=== PATIENT | female | born 1935 | race Caucasian/White ===

== ENCOUNTER 2019-01-31 14:22 | Inpatient (IN) | payer OTHER, MEDICARE ==
[~2019-01-31] VITALS: Ht 157.5 cm; Wt 54.4 kg
--- NOTE | ~2019-01-31 | HC ---
[facility] [place] [address] CONSULTATION Name: ANDRÉS ARROYO Room #: 451-[facility] IN M.R.#: [id number] Admission: 01/31/19 ������������������ Attend Phys: Albina Ratliff Discharge: 02/03/19 ������������������ Date of : 33 Report #: [id number] THIS REPORT FOR: //name// CC: Albina Stoddard HISTORY OF PRESENT ILLNESS: This patient is seen in consultation at the request of Dr. Ratliff. 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 Her daughter called last week stating that she had seen Dr. Cano and had abnormal labs and requested an appointment to again be seen, which was scheduled for this week. She was originally treated with 6 cycles of ABVD chemotherapy, which was completed in 2009, in complete remission. I saw her last in 01/2015 and she subsequently has been followed by her primary physician. Her daughter states that her laboratory studies were normal in October and with recent complaints of weakness and confusion, studies were repeated, which were abnormal. She also had a CAT scan performed as an outpatient, which showed hilar adenopathy. PAST MEDICAL HISTORY: Significant also for previous total knee replacement in 2006. She has elevated cholesterol, with medical management. MEDICATIONS: As listed in the MFR. ALLERGIES: None known. SOCIAL HISTORY: She is a nondrinker, nonsmoker. FAMILY HISTORY: Noncontributory. REVIEW OF SYSTEMS: Negative for any sweats, chills, fevers or unintended weight loss. She has had recent complaints of sore throat and was seen by an ENT. She denies any hemoptysis. She is unaware that she was jaundiced. PHYSICAL EXAMINATION: GENERAL: Her physical examination shows her to be alert. HEENT: Normocephalic, except for jaundice with icteric sclerae. Her mouth is clear. NECK: Supple. CHEST: Clear. CARDIOVASCULAR: Normal S1, S2. ABDOMEN: Shows no palpable masses. NEUROLOGIC: No focal localizing signs. PSYCHIATRIC: Not agitated or confused. [facility] [address] [place] [address] CONSULTATION Name: ANDRÉS ARROYO LEELA Room #: 451-P [facility] IN M.R.#: [id number] Admission: 01/31/19 ������������������ Attend Phys: Albina Ratliff Discharge: 02/03/19 ������������������ Date of : 33 Report #: [id number] LYMPHATICS: Reveal a large 3 cm left axillary lymph node. LABORATORY DATA: Laboratory studies in addition to jaundice show pancytopenia with a hemoglobin of 8.7, platelet count of 40,000 and white count of 1300. Her lactic acid was elevated at 2.9. The outside CT scan report again shows hilar and mediastinal adenopathy. 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 PLAN: I recommended that she undergo biopsy of left axillary lymph node and bone marrow for tissue diagnosis of what I suspect will be a malignant lymphoma. It would be unusual for her to have recurrent Hodgkin's disease after 9 years, with a negative PET scan and labs at 5 years when she was last seen. Both she and her daughter state that they are willing to consider and undergo further therapy and to that end, we discussed possible transfer to [facility] to expedite her workup and treatment since chemotherapy is not relatively available here at [facility] and she is pancytopenic. Thanks for allowing me to see her in consultation and allowing me to participate in her care. ��������������������������������������������� ���������������������������������������� By: ��������������������������������������������� 1935 [address] Anais Dunlap MD /nt
[~2019-01-31 14:22] MED LIST: ADULT LOW DOSE81 MG PO; BIOTIN OR; CALCIUM 600 +1 EAC1 PO; CLOBETASOL; ESTRACE1 MG PO; ESTRADIOL 1 MG T1 MG PO; FISH OIL 1,0001 EAC5 PO; GLUCOSAMINE HC500 MG PO; MULTIVITAMINS PO; PROVERA2.5 MG PO; RED YEAST RICE600 M1 PO; TRIAM/HCTZ; TYLENOL PM PO; ZOCOR 10 MG TAB10 MG PO
[2019-01-31 14:23] VITALS: BP 80/42
[2019-01-31 16:36] LABS: HEMOGLOBIN 8.7 gm/dL (12.0-15.0); MCV 82.2 fL (80.0-100.0)
[2019-01-31 16:38] LABS: HEMATOCRIT 25.4 % (37.0-47.0); MCH 28.1 pg (26.0-34.0); MCHC 34.2 g/dL (28.0-37.0); RBC 3.08 mil/uL (4.20-5.00)
[2019-01-31 16:42] LABS: WBC 1.3 thou/uL (4.0-11.0)
[2019-01-31 16:44] LABS: CALCIUM 9.3 mg/dL (8.5-10.1); CREATININE 1.2 mg/dL (0.6-1.0); POTASSIUM 3.8 mmol/L (3.5-5.1)
[2019-01-31 16:48] LABS: ALBUMIN 2.4 g/dL (3.4-5.0); DIRECT BILIRUBIN 2.8 mg/dL (<0.1-0.3); TOTAL BILIRUBIN 4.1 mg/dL (<0.1-1.0); TOTAL PROTEIN 5.6 g/dL (6.4-8.2); TROPONIN-I 0.06 ng/mL (<0.06)
[2019-01-31 17:14] LABS: PLATELET COUNT 48 thou/uL (150-400)
[2019-01-31 17:40] VITALS: BP 101/46
[2019-01-31 18:35] VITALS: BP 115/51
--- NOTE | 2019-01-31 18:41 | EKG ---
[place] [address] [facility] [place] [address] ELECTROCARDIOGRAM REPORT Name: ANDRÉS ARROYO Room #: 451-P ADM IN M.R.#: [id number] ������������������ Admission: 01/31/19 ������������������ Attend Phys: Albina Ratliff Discharge: ������������������ Date of : 33 Report #: [id number] ����������������������������������������������������������������� [id number] THIS REPORT FOR: //name// [facility] ED Test Date: 2019-01-31 Test Time: 16:31:11 Pat Name: ANDRÉS ARROYO Department: Room: [facility] Gender: F [place]. Senator: JAMES : 1935 Requested By: Brayden Maldonado Order Number: [id number] MD: Benny Hayes Measurements Intervals [place] Rate: 89 P: 31 MN: 185 QRS: -12 QRSD: 74 T: 43 QT: 346 QTc: 421 Interpretive Statements Sinus rhythm Inferior infarct, old Low voltage throughout Baseline wander Early transition Nonspecific ST-T wave changes Compared to ECG 06/28/2009 08:07:23 Sinus bradycardia no longer present Electronically Signed On 01-31-2019 18:41:36 CRITICAL POWER TECHNICIAN by Benny Hayes [email or web address] ��������������������������������������������� <ELECTRONICALLY SIGNED> ���������������������������������������� By: Benny Hayes MD ��������������������������������������������� 01/31/19 [id number] Benny Hayes MD /EPI
--- NOTE | 2019-01-31 19:23 | NUR ---
ADM REPORT ENDORSED TO NOC RN.
[2019-01-31 19:37] LABS: TSH 5.844 uIU/mL (0.358-3.740)
[2019-01-31 20:46] VITALS: BP 115/57
--- NOTE | 2019-02-01 03:46 | NUR ---
PT CONFUSED DURING THE NIGHT PT SET OFF BED ALARM NO COMPLAINTS OF PAIN PER PT REPORT INFO FOR HEALTH HX GIVEN BY DAUGHTER PT ORIENTATED TO ROOM AND CALL LIGHT.
[2019-02-01 04:16] LABS: HEMATOCRIT 21.4 % (37.0-47.0); MCV 82.8 fL (80.0-100.0); PLATELET COUNT 50 thou/uL (150-400); RDW 15.1 % (10.5-14.5)
[2019-02-01 04:20] LABS: HEMOGLOBIN 7.4 gm/dL (12.0-15.0); MCH 28.4 pg (26.0-34.0); MCHC 34.3 g/dL (28.0-37.0); RBC 2.59 mil/uL (4.20-5.00)
[2019-02-01 04:51] VITALS: BP 135/53
[2019-02-01 06:32] LABS: ANISOCYTOSIS 1+; HYPOCHROMASIA 1+
[2019-02-01 07:47] VITALS: BP 111/58
[2019-02-01 07:48] VITALS: BP 107/55
[2019-02-01 07:49] VITALS: BP 128/63
[2019-02-01 10:42] LABS: % SATURATION 41 % (20-39); IRON 54 ug/dL (50-170); TIBC 132 ug/dL (250-450)
[2019-02-01 15:10] VITALS: BP 108/55
--- NOTE | 2019-02-01 17:08 | NUR ---
PT VS STABLE THROUGHOUT SHIFT. PT COOPERATIVE BUT CONFUSED. C/O BACK PAIN, TREATED WITH MEDICATION. PT RESTING COMFORTABLY.
[2019-02-01 19:16] VITALS: BP 120/59
--- NOTE | 2019-02-02 01:10 | NUR ---
PT CONFUSED DURING THE NIGHT PT RESTED ON AND OFF PT SET OFF BED ALARM NO COMPLAINTS OF PAIN.
[2019-02-02 03:59] VITALS: BP 138/70
[2019-02-02 04:26] LABS: ALBUMIN 1.7 g/dL (3.4-5.0); CREATININE 0.8 mg/dL (0.6-1.0); PHOSPHORUS 1.9 mg/dL (2.5-4.9); POTASSIUM 3.3 mmol/L (3.5-5.1)
[2019-02-02 04:31] LABS: CALCIUM 7.3 mg/dL (8.5-10.1)
[2019-02-02 04:50] LABS: HEMOGLOBIN 6.5 gm/dL (12.0-15.0); MCV 83.5 fL (80.0-100.0)
[2019-02-02 04:54] LABS: MCH 28.6 pg (26.0-34.0); MCHC 34.2 g/dL (28.0-37.0); PLATELET COUNT 42 thou/uL (150-400); RBC 2.28 mil/uL (4.20-5.00); RDW 14.9 % (10.5-14.5)
[2019-02-02 05:20] LABS: WBC 0.8 thou/uL (4.0-11.0)
[2019-02-02 05:21] LABS: HEMATOCRIT 19.1 % (37.0-47.0)
--- NOTE | 2019-02-02 06:29 | NUR ---
PT DPOA CALLED PACHECO ARROYO CONSENT FOR BLOOD GIVEN 2 RN CONFIRMATION OF VERBALIZED CONSENT DONE OVER PHONE.
[2019-02-02 06:46] LABS: ABSOLUTE NEUTROPHILS 0.7 thou/uL (1.4-8.2); HYPOCHROMASIA 3+; LARGE PLATELETS FEW; PLATELET ESTIMATE MARKEDLY DECREASED
[2019-02-02 07:32] VITALS: BP 100/50; BP 103/47
[2019-02-02 08:08] VITALS: BP 111/61
--- NOTE | 2019-02-02 11:25 | NUR ---
TOWARDS POC PT A/O X2. COOPERATIVE. DENIES PAIN, NO NV. PT RECEIVED 1 UNIT PRBC THIS AM, TOLERATED WELL. WILL CONTINUE TO MONITOR.
[2019-02-02 13:30] VITALS: BP 122/53
[2019-02-02 19:24] VITALS: BP 136/65
[2019-02-03 03:52] VITALS: BP 109/58
[2019-02-03 04:03] LABS: MCV 82.9 fL (80.0-100.0); RDW 15.2 % (10.5-14.5)
[2019-02-03 04:05] LABS: HEMATOCRIT 25.5 % (37.0-47.0); MCH 29.3 pg (26.0-34.0); MCHC 35.3 g/dL (28.0-37.0); PLATELET COUNT 41 thou/uL (150-400); RBC 3.08 mil/uL (4.20-5.00)
[2019-02-03 04:12] LABS: WBC 1.2 thou/uL (4.0-11.0)
[2019-02-03 04:17] LABS: ALBUMIN 1.6 g/dL (3.4-5.0); CALCIUM 7.2 mg/dL (8.5-10.1); CREATININE 0.7 mg/dL (0.6-1.0); PHOSPHORUS 2.1 mg/dL (2.5-4.9); POTASSIUM 3.3 mmol/L (3.5-5.1)
[2019-02-03 05:17] LABS: ABSOLUTE NEUTROPHILS 1.1 thou/uL (1.4-8.2)
[2019-02-03 05:19] LABS: ANISOCYTOSIS 1+; LARGE PLATELETS FEW; PLATELET ESTIMATE DECREASED; POLYCHROMASIA 1+
--- NOTE | 2019-02-03 06:00 | NUR ---
Pt. rested quietly at intervals during the night when checked on during frequent rounds. She offers no c/o pain or shortness of air. Up to the bedside comode with assistance of one and a gait belt. Bed alarm is on.
[2019-02-03 07:38] VITALS: BP 109/57
[2019-02-03 11:11] LABS: ALBUMIN 1.7 g/dL (3.4-5.0); DIRECT BILIRUBIN 6.8 mg/dL (<0.1-0.3); TOTAL PROTEIN 3.8 g/dL (6.4-8.2)
--- NOTE | 2019-02-03 12:18 | NUR ---
PT ADMITTED RELATED TO WEAKNESS. CM REVIEWED CHART AND SPOKE WITH CARE TEAM. CM MET WITH PT AT BEDSIDE THIS DAY. PT INDICATED SHE HAD BEEN LIVING IN A HOUSE ALONE WITH NO STEPS TO ENTER AND NO STEPS INSIDE. 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 PT INDICATED NO DME OR HH HX. PT INDICATED SHE PLANS TO RETURN HOME ONCE MEDICALLY STABLE. CM TO FOLLOW INDICATED WITH DC PLANNING.
[2019-02-03 15:12] VITALS: BP 146/64
--- NOTE | 2019-02-03 17:21 | NUR ---
DR. GRAY VISITED WITH PT AND HER DTR THIS AFTERNOON AND INDICATED TO THEM THAT PT WOULD BENEFIT FROM TRANSFER TO FOR EVAL AND TREAT FOR [employer] TO MARROW/LIVER/ BONE. [facility] CONTACTED TRANSFER CENTER SPOKE WITH GAYATRI AND FAXED CLINICAL INFO. CM REQUESTED CHART COPY AND CONTACTED RADIOLOGY TO HAVE REDORDS CLOUDED. [facility] COMPLETED TRANSFER FORM AND [facility] FORM THEY ARE ON THE FRONT OF PT'S CHART WITH CHART COPY. GAYATRI CALLED BACK AND INDICATED THAT DR. THORPE AT WANTED TO SPEAK WITH DR. GRAY OR DR. BARRIENTOS. ANALIA CALLED DR. GRAY'S OFFICE AND GOT DR. GARRETT WHO WAS GRADUATE ASSISTANT ATHLETIC TRAINER HE INDICATED HE HADN'T SEEN PT BUT WOULD PASS MESSAGE ONTO [facility]. GAYATRI CALLED BACK AND SAID SHE HADN'T HEARD FROM ANYONE. ANALIA CALLED DR. BARRIENTOS AND HE INDICATED HE WOULD CALL. ANALIA PROVIDED THE LHONE ANDREW FOR GAYATRI AT TRANSFER [employer] . CM TO FOLLOW INDICATED WITH DC PLANNING.
[2019-02-03 19:28] VITALS: BP 129/56
--- NOTE | 2019-02-03 21:10 | NUR ---
Received call from with a bed number and the accepting Dr. which is Dr. Mayela Ramos. Call placed to Mela VALADEZ as pt. needs discharge orders.
--- NOTE | 2019-02-03 21:30 | NUR ---
Received orders for discharge and transportation certificate faxed. Dgt. was called and notified.
--- NOTE | 2019-02-03 22:00 | NUR ---
Call placed to [facility] and report was given to Gaby PURCELL.
--- NOTE | 2019-02-03 22:40 | NUR ---
Pt. discharged to via [employer] transport. Pt. is stable and she offers no complaints.
== END 2019-02-03 22:40 | disposition short-term general hospital (02) | DRG 315 ==
LOC: ER 14:22 → EROBS 17:04 → 4W 17:04
PROVIDERS: Emergency Medicine; ADMIT Hospitalist
PROC: 30233N1 Transfusion of Nonautologous Red Blood Cells into Peripheral Vein, Percutaneous Approach (ICD-10-PCS; principal; 2019-02-02)
DX: I95.9 Hypotension, unspecified (principal); D61.818 Other pancytopenia; R65.10 Systemic inflammatory response syndrome (SIRS) of non-infectious origin without acute organ dysfunction; C85.90 Non-Hodgkin lymphoma, unspecified, unspecified site; K52.9 Noninfective gastroenteritis and colitis, unspecified; E86.0 Dehydration; Z96.651 Presence of right artificial knee joint; R59.1 Generalized enlarged lymph nodes; E86.1 Hypovolemia; Z90.49 Acquired absence of other specified parts of digestive tract; Z96.652 Presence of left artificial knee joint; Z79.82 Long term (current) use of aspirin; Z79.899 Other long term (current) drug therapy
CPT/HCPCS: 10047